=== PATIENT | female | born 2005 | race Caucasian/White ===

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

== ENCOUNTER 2024-04-19 01:57 | Emergency (ER) | payer OTHER ==
[~2024-04-19] VITALS: Ht 167.6 cm; Wt 69.9 kg
[~2024-04-19 01:57] MED LIST: MACROBID 100 M100 MG PO; VENTOLIN HFA18 GM INH
[2024-04-19] MEDS ORDERED: AMOX TR-K CLV1 EAC1 PO (02:28)
[2024-04-19] MEDS ORDERED: AMOXICILLIN/CLAVULANATE K 875 MG HOME.PACK PO ONE (02:30)
[2024-04-19 02:40] VITALS: BP 120/77
== END 2024-04-19 02:40 | disposition home or self-care (01) ==
LOC: ED 01:57
DX: K02.9 Dental caries, unspecified (principal); R68.84 Jaw pain; J45.909 Unspecified asthma, uncomplicated; Z88.6 Allergy status to analgesic agent; Z88.8 Allergy status to other drugs, medicaments and biological substances
CPT/HCPCS: 99283